=== PATIENT | male | born 1940 ===

== ENCOUNTER 2023-10-24 05:00 | Day surgery (SDC) | payer OTHER ==
[~2023-10-24] VITALS: Ht 174 cm; Wt 72.6 kg
[~2023-10-24 05:00] MED LIST: ARICEPT10 MG PO; CLONAZEPAM0.5 M1 PO; COZAAR50 MG PO; HYDRALAZINE HCL50 MG PO; MIRTAZAPINE30 M1 PO; NORVASC5 MG PO; OLANZAPINE5 MG PO; SYNTHROID50 MCG PO; ZOCOR20 MG PO; ZOLOFT100 MG PO
[2023-10-24] MEDS ORDERED: METRONIDAZOLE/SODIUM CHLORIDE 500 MG/100 ML PIGGYBACK IV ONE ×2 (06:49→08:15)
[2023-10-24] MEDS ORDERED: CEFTRIAXONE SODIUM 2,000 MG VIAL ONE (06:49)
[2023-10-24] MEDS ORDERED: HEMOSTATIC MATRIX 1 KIT KIT TOP ONE ×2 (07:00→08:15)
[2023-10-24] MEDS ORDERED: BUPIVACAINE HCL/PF 0.25% 30ML VIAL InF ONE (07:00)
[2023-10-24] MEDS ORDERED: DIBUCAINE 15 GM OINT..GM. TUBE ONE (07:00)
[2023-10-24] MEDS ORDERED: POVIDONE-IODINE 118 ML BOTT TOP ONE ×2 (07:00→08:15)
[2023-10-24] MEDS ORDERED: LIDOCAINE HCL/EPINEPHRINE 10MG/ML 1% 50ML IJ ONE ×2 (07:00→08:15)
[2023-10-24] MEDS ORDERED: BUPIVACAINE HCL/PF 0.5% 30ML ML IJ ONE (08:15)
[2023-10-24] MEDS ORDERED: DIBUCAINE 30 GM TUBE RECTAL ONE (08:15)
[2023-10-24] MEDS ORDERED: CEFTRIAXONE SODIUM 2,000 MG VIAL IV ONE (08:15)
[2023-10-24] MEDS ORDERED: TAMSULOSIN HCL 0.4 MG CAP PO STA (09:26)
[2023-10-24] MEDS ORDERED: TRAM1TAB98 PO (09:29)
[2023-10-24] MEDS ORDERED: NEURONTIN300 MG PO (09:29)
[2023-10-24] MEDS ORDERED: TAMS0.4C PO (09:30)
[2023-10-24] MEDS ORDERED: TAMSULOSIN HCL 0.4 MG CAP PO ONE (11:39)
== END 2023-10-24 13:25 | disposition home or self-care (01) ==
LOC: CIR.AMB 05:00 → EDBD 10:45 → CIR.AMB 10:45
PROVIDERS: ATTEND Surgery
DX: K64.2 Third degree hemorrhoids (principal); K64.4 Residual hemorrhoidal skin tags; E78.5 Hyperlipidemia, unspecified; I10 Essential (primary) hypertension; E03.9 Hypothyroidism, unspecified